=== PATIENT | male | born 1975 | race Caucasian/White ===

== ENCOUNTER 2018-01-19 13:22 | Inpatient (IN) | payer MEDICAID ==
[~2018-01-19] VITALS: Ht 188 cm; Wt 80.8 kg
[2018-01-19 14:27] LABS: Basophils # (auto) 0 uL; Eosinophils # (auto) 0.1 uL; Hemoglobin 7.2 g/dL (13.5-17.5); Mean Corpuscular Hemoglobin 22.4 pg (28.0-32.0); Mean Corpuscular Hgb Conc. 31.4 g/dL (32.0-36.0); Red Blood Cells 3.22 10^6/uL (4.5-5.90); White Blood Cell 3.2 10^3/uL (4.4-10.8)
[2018-01-19 14:28] LABS: Basophils % (auto) 0.8 % (0.0-2.0); Eosinophils % (auto) 4.5 % (0.0-7.0); Lymphocytes % (auto) 29.9 % (10.0-50.0); Mean Corpuscular Volume 71.3 fL (80.0-100.0); Monocytes # (auto) 0.3 uL; Monocytes % (auto) 10.5 % (0.0-12.0); Neutrophils # (auto) 1.7 uL; Neutrophils % (auto) 54.3 % (37.0-80.0); Platelet Count (auto) 297 10^3/uL (140-450)
[2018-01-19 14:35] LABS: Red Cell Distribution Width 21.4 % (11.8-14.3)
[2018-01-19 14:43] LABS: Alanine Aminotransferase 10 U/L (16-61); Albumin 3.3 g/dL (3.4-5.0); Anion Gap 6 (5-15); Aspartate Aminotransferase 9 U/L (15-37); BUN/Creatinine Ratio 6.9; Blood Urea Nitrogen 15 mg/dL (7-18); Carbon Dioxide 28 mmol/L (21-32); Chloride 107 mmol/L (98-107); GFR African American 43 mL/min; GFR Non-African American 36 mL/min; Glucose 91 mg/dL (74-106); Potassium 3.6 mmol/L (3.5-5.1); Sodium 141 mmol/L (136-145)
[2018-01-19 14:48] LABS: Alkaline Phosphatase 100 U/L (45-117); Bilirubin, Total 0.2 mg/dL (0.2-1.0); Total Protein 7.1 g/dL (6.4-8.2)
[2018-01-19] MEDS ORDERED: SODIUM CHLORIDE 0.9% 1,000 ML IV ONE (15:45)
[2018-01-19] MEDS ORDERED: PANTOPRAZOLE 40 MG/10 ML VIAL IV ONE (15:45)
[2018-01-19] MEDS ORDERED: MORPHINE SULF INJ 2 MG/ML SYRINGE 1ML IV PRN (15:45)
[2018-01-19] MEDS ORDERED: NITROGLYCERIN 0.4 MG SL TAB SL PRN (15:45)
[2018-01-19] MEDS ORDERED: GOLYTELY 4L KIT PO ONE (16:00)
[2018-01-19 17:48] LABS: Alcohol, Urine < 3.0 mg/dL (0-5); Amphetamine Screen, Urine NEGATIVE (NEGATIVE); Barbiturate Scree,Urine NEGATIVE (NEGATIVE); Benzodiazephine Screen, Urine NEGATIVE (NEGATIVE); Cannabinoid Screen, Urine NEGATIVE (NEGATIVE); Cocaine Screen, Urine NEGATIVE (NEGATIVE); Opiate Scree,Urine NEGATIVE (NEGATIVE); Phencyclidine Screen, Urine NEGATIVE (NEGATIVE)
[2018-01-19 17:50] LABS: Urine Bacteria NONE SEEN /hpf (None Seen); Urine Blood Negative /uL (Negative); Urine Specific Gravity 1.011 (1.001-1.035); Urine WBC 3 /hpf (0 - 3)
[2018-01-19 23:30] VITALS: BP 122/67
[2018-01-19] MEDS ORDERED: DOCU-94 PO (23:57)
[2018-01-19] MEDS ORDERED: FERR-20 PO (23:57)
[2018-01-20] VITALS (8 sets, daily range): BP systolic 122–145; BP diastolic 66–85
[2018-01-20] MEDS ORDERED: GOLYTELY 4L KIT PO ONE (06:00)
[2018-01-20 07:01] LABS: Basophils # (auto) 0 uL; Eosinophils # (auto) 0.2 uL; Lymphocytes # (auto) 1.2 uL; Mean Corpuscular Hemoglobin 22.5 pg (28.0-32.0); Mean Corpuscular Hgb Conc. 31.2 g/dL (32.0-36.0); Monocytes # (auto) 0.4 uL; Neutrophils # (auto) 1.8 uL
[2018-01-20 07:11] LABS: Basophils % (auto) 0.8 % (0.0-2.0); Eosinophils % (auto) 4.3 % (0.0-7.0); Hematocrit 21.6 % (41.0-53.0); Lymphocytes % (auto) 33.6 % (10.0-50.0); Mean Corpuscular Volume 72.1 fL (80.0-100.0); Monocytes % (auto) 10.2 % (0.0-12.0); Neutrophils % (auto) 51.1 % (37.0-80.0); Platelet Count (auto) 260 10^3/uL (140-450); White Blood Cell 3.5 10^3/uL (4.4-10.8)
[2018-01-20 07:14] LABS: BUN/Creatinine Ratio 8.5
[2018-01-20 07:26] LABS: INR 1.01 (0.9-1.15); Partial Thromboplastin Time 25.2 sec (23.78-33.04); Prothrombin Time 10.8 sec (9.27-12.13)
[2018-01-20 07:36] LABS: Red Cell Distribution Width 21.6 % (11.8-14.3)
[2018-01-20 07:37] LABS: Hemoglobin 6.7 g/dL (13.5-17.5)
[2018-01-20] MEDS: PANTOPRAZOLE 40 MG/10 ML VIAL IV SCH (09:51)
[2018-01-20] MEDS ORDERED: SODIUM CHLORIDE LOCK 10 ML ONE (10:47)
[2018-01-20] MEDS ORDERED: MIDAZOLAM HCL 5 MG/ML-1ML VIAL ONE (10:47)
[2018-01-20] MEDS ORDERED: fentaNYL CITRATE 100 MCG/2 ML VL ONE (10:48)
[2018-01-20 19:29] LABS: Eosinophils # (auto) 0.2 uL; Lymphocytes # (auto) 1.6 uL; Neutrophils # (auto) 2.2 uL; Nucleated Red Blood Cells % 0.1 %
[2018-01-20 19:31] LABS: Basophils # (auto) 0 uL; Basophils % (auto) 0.9 % (0.0-2.0); Eosinophils % (auto) 4.5 % (0.0-7.0); Hematocrit 24.1 % (41.0-53.0); Hemoglobin 7.6 g/dL (13.5-17.5); Lymphocytes % (auto) 35.3 % (10.0-50.0); Mean Corpuscular Hemoglobin 22.9 pg (28.0-32.0); Mean Corpuscular Hgb Conc. 31.3 g/dL (32.0-36.0); Monocytes # (auto) 0.5 uL; Monocytes % (auto) 10.1 % (0.0-12.0); Neutrophils % (auto) 49.2 % (37.0-80.0); Platelet Count (auto) 262 10^3/uL (140-450); Red Blood Cells 3.31 10^6/uL (4.5-5.90); White Blood Cell 4.5 10^3/uL (4.4-10.8)
[2018-01-20 19:40] LABS: Red Cell Distribution Width 21.9 % (11.8-14.3)
[2018-01-21 05:00] VITALS: BP 140/67
[2018-01-21 05:59] LABS: Hemoglobin 8.1 g/dL (13.5-17.5); Lymphocytes # (auto) 1.7 uL; Monocytes # (auto) 0.5 uL
[2018-01-21 06:01] LABS: Basophils # (auto) 0 uL; Basophils % (auto) 0.7 % (0.0-2.0); Eosinophils # (auto) 0.2 uL; Eosinophils % (auto) 4.8 % (0.0-7.0); Hematocrit 25.9 % (41.0-53.0); Lymphocytes % (auto) 35.7 % (10.0-50.0); Mean Corpuscular Hemoglobin 22.8 pg (28.0-32.0); Mean Corpuscular Hgb Conc. 31.3 g/dL (32.0-36.0); Mean Corpuscular Volume 72.7 fL (80.0-100.0); Monocytes % (auto) 10.4 % (0.0-12.0); Neutrophils # (auto) 2.3 uL; Neutrophils % (auto) 48.4 % (37.0-80.0); Platelet Count (auto) 277 10^3/uL (140-450); Red Blood Cells 3.57 10^6/uL (4.5-5.90); White Blood Cell 4.8 10^3/uL (4.4-10.8)
[2018-01-21 06:03] LABS: Calcium 8.5 mg/dL (8.5-10.1); Potassium 3.8 mmol/L (3.5-5.1)
[2018-01-21 06:09] LABS: Red Cell Distribution Width 21.7 % (11.8-14.3)
[2018-01-21 06:11] LABS: BUN/Creatinine Ratio 6.5
[2018-01-21 08:05] VITALS: BP 138/88
[2018-01-21 08:07] VITALS: BP 138/88
[2018-01-21] MEDS ORDERED: SODIUM CHLORIDE LOCK 10 ML ONE (09:28)
[2018-01-21] MEDS: PANTOPRAZOLE 40 MG/10 ML VIAL IV SCH (09:55)
[2018-01-21] MEDS: MIDAZOLAM HCL 5 MG/ML-1ML VIAL ONE ×3 (12:23→12:29)
[2018-01-21] MEDS: fentaNYL CITRATE 100 MCG/2 ML VL ONE ×2 (12:23→12:26)
[2018-01-21] MEDS ORDERED: PROMETHAZINE HCL 25 MG/ML 1ML IV PRN (13:00)
[2018-01-21] MEDS ORDERED: HYDROCORTISONE ACET 25 MG RECTAL SUPP PR ONE (13:00)
[2018-01-21 16:20] VITALS: BP 114/71
[2018-01-21 20:00] VITALS: BP 154/89
[2018-01-21] MEDS ORDERED: HYDROcodone-ACET 5/325MG TAB PO PRN (22:15)
[2018-01-21 22:21] VITALS: BP 154/89
[2018-01-21] MEDS: HYDROCORTISONE ACET 25 MG RECTAL SUPP PR SCH (22:58)
[2018-01-22 05:00] VITALS: BP 137/83
[2018-01-22 06:01] LABS: Basophils # (auto) 0 uL; Eosinophils # (auto) 0.2 uL; Lymphocytes # (auto) 1.4 uL; Nucleated Red Blood Cells % 0.1 %
[2018-01-22 06:06] LABS: Basophils % (auto) 0.5 % (0.0-2.0); Eosinophils % (auto) 4.2 % (0.0-7.0); Hematocrit 24.3 % (41.0-53.0); Hemoglobin 7.7 g/dL (13.5-17.5); Lymphocytes % (auto) 27.1 % (10.0-50.0); Mean Corpuscular Hemoglobin 23.1 pg (28.0-32.0); Mean Corpuscular Hgb Conc. 31.9 g/dL (32.0-36.0); Mean Corpuscular Volume 72.6 fL (80.0-100.0); Monocytes # (auto) 0.4 uL; Monocytes % (auto) 8.9 % (0.0-12.0); Neutrophils % (auto) 59.3 % (37.0-80.0); Platelet Count (auto) 259 10^3/uL (140-450); Red Blood Cells 3.34 10^6/uL (4.5-5.90)
[2018-01-22 06:17] LABS: Red Cell Distribution Width 22.2 % (11.8-14.3)
[2018-01-22 08:20] VITALS: BP 143/99
[2018-01-22 09:00] VITALS: BP 143/99
[2018-01-22] MEDS: PANTOPRAZOLE 40 MG/10 ML VIAL IV SCH (10:04)
[2018-01-22] MEDS: HYDROCORTISONE ACET 25 MG RECTAL SUPP PR SCH (10:04)
[2018-01-22 12:52] VITALS: BP 143/99
== END 2018-01-22 14:20 | disposition home or self-care (01) | DRG 253 ==
LOC: ER 13:22 → EDBD 13:22 → TELE 13:23 → TELE-WESTW 22:09
PROVIDERS: ADMIT Internal Medicine; ATTEND Internal Medicine
PROC: 30233N1 Transfusion of Nonautologous Red Blood Cells into Peripheral Vein, Percutaneous Approach (ICD-10-PCS; 2018-01-20)
PROC: 0DBH8ZX Excision of Cecum, Via Natural or Artificial Opening Endoscopic, Diagnostic (ICD-10-PCS; principal; 2018-01-21 12:20)
DX: K62.5 Hemorrhage of anus and rectum (principal); N18.3 Chronic kidney disease, stage 3 (moderate); D12.0 Benign neoplasm of cecum; D50.0 Iron deficiency anemia secondary to blood loss (chronic); F17.210 Nicotine dependence, cigarettes, uncomplicated; F31.9 Bipolar disorder, unspecified; K64.8 Other hemorrhoids; S00.03XA Contusion of scalp, initial encounter; F41.9 Anxiety disorder, unspecified; I12.9 Hypertensive chronic kidney disease with stage 1 through stage 4 chronic kidney disease, or unspecified chronic kidney disease; S16.1XXA Strain of muscle, fascia and tendon at neck level, initial encounter; W18.39XA Other fall on same level, initial encounter; Y93.89 Activity, other specified; Y92.89 Other specified places as the place of occurrence of the external cause; Z79.899 Other long term (current) drug therapy; Z80.0 Family history of malignant neoplasm of digestive organs; Z82.49 Family history of ischemic heart disease and other diseases of the circulatory system; Z83.3 Family history of diabetes mellitus; K64.9 Unspecified hemorrhoids
CPT/HCPCS: 36415; 45380; 70450; 71045; 72125; 76775; 80048; 80053; 80307; 80320; 81001; 82270; 82962; 84484; 85025; 85610; 85730; 86850; 86900; 86901; 86920; 93005; 96361; 96374; C9113; J2250

== ENCOUNTER 2018-04-04 13:18 | Emergency (ER) | payer MEDICAID ==
[~2018-04-04] VITALS: Ht 188 cm; Wt 75.3 kg
[~2018-04-04 13:18] MED LIST: DOCU-94 PO; FERR-20 PO
[2018-04-04 14:38] LABS: Basophils # (auto) 0 uL; Eosinophils # (auto) 0.1 uL; Lymphocytes # (auto) 1.4 uL; Lymphocytes % (auto) 37.7 % (10.0-50.0); Monocytes # (auto) 0.4 uL; Nucleated Red Blood Cells % 0.1 %; White Blood Cell 3.8 10^3/uL (4.4-10.8)
[2018-04-04 14:40] LABS: Eosinophils % (auto) 3.3 % (0.0-7.0); Hematocrit 32.7 % (41.0-53.0); Hemoglobin 10.8 g/dL (13.5-17.5); Mean Corpuscular Hemoglobin 26.9 pg (28.0-32.0); Mean Corpuscular Volume 81.6 fL (80.0-100.0); Monocytes % (auto) 9.5 % (0.0-12.0); Neutrophils # (auto) 1.8 uL; Neutrophils % (auto) 48.5 % (37.0-80.0); Platelet Count (auto) 266 10^3/uL (140-450)
[2018-04-04 14:54] LABS: Red Cell Distribution Width 21.1 % (11.8-14.3)
[2018-04-04 14:55] LABS: Urine Bacteria NONE SEEN /hpf (None Seen); Urine Blood Negative /uL (Negative); Urine Specific Gravity 1.004 (1.001-1.035); Urine WBC <1 /hpf (0 - 3)
[2018-04-04 15:02] LABS: Albumin 3.5 g/dL (3.4-5.0); BUN/Creatinine Ratio 8.4; Calcium 8.2 mg/dL (8.5-10.1)
[2018-04-04 15:04] LABS: Bilirubin, Total 0.1 mg/dL (0.2-1.0); Total Protein 7.4 g/dL (6.4-8.2)
[2018-04-04 15:41] VITALS: BP 134/83
== END 2018-04-04 16:09 | disposition home or self-care (01) ==
LOC: EDBD 13:18 → ER 13:27
DX: T59.91XA Toxic effect of unspecified gases, fumes and vapors, accidental (unintentional), initial encounter (principal); R53.81 Other malaise; R53.83 Other fatigue; I12.9 Hypertensive chronic kidney disease with stage 1 through stage 4 chronic kidney disease, or unspecified chronic kidney disease; N18.3 Chronic kidney disease, stage 3 (moderate); D63.1 Anemia in chronic kidney disease; F17.210 Nicotine dependence, cigarettes, uncomplicated; Y92.89 Other specified places as the place of occurrence of the external cause
CPT/HCPCS: 36415; 71045; 80053; 81001; 85025; 94761